=== PATIENT | female | born 2000 | race Caucasian/White ===

== ENCOUNTER 2018-07-14 08:57 | Day surgery (SDC) | payer BC, OTHER ==
[~2018-07-14] VITALS: Ht 160 cm; Wt 89.8 kg
[~2018-07-14 08:57] MED LIST: FLUO20CA8 PO; LIDOCAINE 2% W/EPIN INJ 20ML **PRES FREE As Ordered ONE; LIDOCAINE 3.5 % 1ML OPHTH TOPICAL GEL OU ONE; MAXITROL OPHTH OINT 3.5 GM As Ordered ONE; MAXITROL OPHTH SUSP 5 ML As Ordered ONE; POVIDONE-IODINE 5% OPHTH PREP SOL 30ML As Ordered ONE
[2018-07-14] MEDS ORDERED: PROPOFOL 200 MG/20 ML VIAL As Ordered ONE (09:30)
[2018-07-14] MEDS ORDERED: ONDANSETRON 4MG/2ML VIAL (J2405) As Ordered ONE (09:30)
[2018-07-14] MEDS ORDERED: fentaNYL 100 MCG/2 ML INJECTION (J3010) As Ordered ONE ×2 (09:30→11:52)
[2018-07-14] MEDS ORDERED: dexameTHASONE 4 MG/ML 1ML VIAL (J1100) As Ordered ONE (09:30)
[2018-07-14] MEDS ORDERED: LIDOCAINE 2% INJ 100 MG/5 ML SDV (FOR ANES.) As Ordered ONE (09:30)
[2018-07-14] MEDS ORDERED: MIDAZOLAM INJ 2 MG/2 ML VIAL (J2250) As Ordered ONE (09:31)
[2018-07-14 09:53] LABS: URINE PREG TEST NEGATIVE (NEGATIVE)
[2018-07-14] MEDS ORDERED: METOCLOPRAMIDE INJ 10MG/2ML VIAL (J2765) As Ordered ONE (12:10)
[2018-07-14] MEDS ORDERED: NORCO, ANEXSIA 5/325MG TABLET (HYDROcodone/ACETAMINOPHEN) PO PRN (12:45)
[2018-07-14] MEDS ORDERED: ONDANSETRON 4MG/2ML VIAL (J2405) IV PRN (12:45)
[2018-07-14] MEDS ORDERED: fentaNYL 100 MCG/2 ML INJECTION (J3010) IV PRN (12:45)
[2018-07-14] MEDS ORDERED: LR 1,000 ML IV SCH (12:45)
[2018-07-14 14:20] VITALS: BP 151/88
--- NOTE | 2018-07-14 16:20 | RO ---
DATE OF PROCEDURE: 07/14/2018 PREOPERATIVE DIAGNOSIS: Blind painful right eye. POSTOPERATIVE DIAGNOSIS: Blind painful right eye status-post enucleation with 20 mm silicone implant and medium size conformer right eye. 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 SURGEON: Fabian Marquis DO ANESTHESIA: General LMA. SPECIMENS: Sent to pathology. ESTIMATED BLOOD LOSS: Minimal. IMPLANTS: A 20 mm silicone sphere was placed in the orbit and in addition a medium sized conformer was placed in the conjunctival fornix. PROCEDURE IN DETAIL: After obtaining informed consent and confirming that the operative site was the right eye, the patient was taken to the operating room where a time out was performed confirming again checking that the surgery was to be performed on the right globe and the patient was placed under general anesthesia. The right eye was prepped and draped in a sterile fashion. A retrobulbar block of 5 mL of 2% Lidocaine with epinephrine was performed. The lid speculum was placed in the right eye. A 360 degrees conjunctival and tenon peritomy was performed. The extra-ocular muscles were tagged with 5-0 vicryl suture and disinserted. The globe was enucleated. A Songe soaked with lidocaine and epinephrine was placed in the orbit for 5 minutes to quench bleeding. When adequate hemostasis had been obtained it was sized and found that a 20 mm spherical silicone implant would work well. This was placed in the intraconal space. The extraocular muscles were tied over the implant and then a double layer closure of first tenon capsule and then conjunctiva was performed. A medium sized conformer was placed in the conjunctiva fornix. An Elastoplast dressing was placed over the shield with an eye pad. The patient was successfully extubated and awoken from anesthesia. She will followup on postoperative day #1 in the office. [id number]
== END 2018-07-14 14:20 | disposition home or self-care (01) ==
LOC: M SDC 08:57
PROVIDERS: ATTEND Ophthalmology
DX: H54.413A Blindness right eye category 3, normal vision left eye (principal); B02.39 Other herpes zoster eye disease
CPT/HCPCS: 65103; 84703; 88300; J1100; J2250; J2405; J2765; J3010